=== PATIENT | female | born 2000 | race Two or more races ===

== ENCOUNTER 2024-07-06 13:34 | Outpatient (CLI) | payer OTHER | END 2024-07-06 13:39 | disposition home or self-care (01) | LOC: PRENATAL 13:34 | PROVIDERS: ATTEND Obstetrics & Gynecology Maternal & Fetal Medicine | DX: O36.80X0 Pregnancy with inconclusive fetal viability, not applicable or unspecified (principal); Z36.82 Encounter for antenatal screening for nuchal translucency; Z14.8 Genetic carrier of other disease; Z3A.11 11 weeks gestation of pregnancy ==

== ENCOUNTER 2024-07-14 05:05 | Emergency (ER) | payer OTHER ==
[~2024-07-14] VITALS: Ht 157.5 cm; Wt 68.0 kg
[2024-07-14] MEDS ORDERED: METOCLOPRAMIDE HCL 5 MG/ML VIAL IM STA (06:52)
[2024-07-14] MEDS ORDERED: FAMOtidine 10 MG/ML (4ML VIAL) IV PUSH STA (06:53)
[2024-07-14] MEDS ORDERED: METOCLOPRAMIDE HCL 5 MG/ML VIAL ONE (07:01)
[2024-07-14] MEDS ORDERED: FAMOTIDINE/PF 20 MG/2 ML VIAL ONE (07:01)
[2024-07-14 07:50] LABS: HEMATOCRIT 36.3 % (36.0-45.00); HEMOGLOBIN 12.2 g/dL (12.0-15.00); MEAN CELL VOLUME 83.5 fL (80.00-100.00); MEAN CORPUSCULAR HGB CONC 33.6 g/dl (32.0-36.0); PLATELET COUNT 289 K/uL (150-450); RED BLOOD COUNT 4.34 M/uL (4.00-6.00); RED CELL DISTRIBUTION WIDTH 14.2 % (11.5-14.5)
[2024-07-14 08:22] LABS: CREATININE SERUM 0.47 mg/dL (0.55-1.02); GFR 161.46; POTASSIUM 3.71 mEq/L (3.5-5.1)
[2024-07-14] MEDS ORDERED: ZOFRAN8 MG PO (09:14)
[2024-07-14] MEDS ORDERED: PEPCID AC20 MG PO (09:14)
[2024-07-14] MEDS ORDERED: 0.9 % SODIUM CHLORIDE 1,000 ML IV ONE (09:15)
== END 2024-07-14 10:42 | disposition home or self-care (01) ==
LOC: ER 05:06
DX: O21.0 Mild hyperemesis gravidarum (principal); Z3A.12 12 weeks gestation of pregnancy; Z88.0 Allergy status to penicillin; Z91.013 Allergy to seafood

== ENCOUNTER 2024-09-02 08:16 | Outpatient (CLI) | payer OTHER ==
[~2024-09-02 08:16] MED LIST: PEPCID AC20 MG PO; ZOFRAN8 MG PO
== END 2024-09-02 08:17 | disposition home or self-care (01) ==
LOC: PRENATAL 08:16
PROVIDERS: ATTEND Obstetrics & Gynecology Maternal & Fetal Medicine
DX: O44.00 Complete placenta previa NOS or without hemorrhage, unspecified trimester (principal); Z3A.20 20 weeks gestation of pregnancy

== ENCOUNTER 2024-10-30 12:06 | Outpatient (CLI) | payer OTHER | END 2024-10-30 12:08 | disposition home or self-care (01) | LOC: PRENATAL 12:06 | PROVIDERS: ATTEND Obstetrics & Gynecology Maternal & Fetal Medicine | DX: O26.849 Uterine size-date discrepancy, unspecified trimester (principal); O24.419 Gestational diabetes mellitus in pregnancy, unspecified control; O99.019 Anemia complicating pregnancy, unspecified trimester; Z3A.29 29 weeks gestation of pregnancy ==

== ENCOUNTER → 2024-11-25 10:50 | Outpatient (CLI) | payer OTHER | END | disposition home or self-care (01) | LOC: PRENATAL 10:50 | PROVIDERS: ATTEND Obstetrics & Gynecology Maternal & Fetal Medicine | DX: O26.849 Uterine size-date discrepancy, unspecified trimester (principal); O36.8199 Decreased fetal movements, unspecified trimester, other fetus; O24.419 Gestational diabetes mellitus in pregnancy, unspecified control; O99.019 Anemia complicating pregnancy, unspecified trimester; Z3A.32 32 weeks gestation of pregnancy ==

== ENCOUNTER 2024-12-14 08:33 | Outpatient (CLI) | payer OTHER | END 2024-12-14 08:34 | disposition home or self-care (01) | LOC: PRENATAL 08:33 | PROVIDERS: ATTEND Obstetrics & Gynecology Maternal & Fetal Medicine | DX: O26.849 Uterine size-date discrepancy, unspecified trimester (principal); O36.8130 Decreased fetal movements, third trimester, not applicable or unspecified; O24.419 Gestational diabetes mellitus in pregnancy, unspecified control; O99.019 Anemia complicating pregnancy, unspecified trimester; Z3A.35 35 weeks gestation of pregnancy ==

== ENCOUNTER 2025-01-06 14:45 | Inpatient (IN) | payer OTHER ==
[~2025-01-06] VITALS: Ht 157.5 cm; Wt 70.8 kg
[2025-01-08] MEDS ORDERED: UNISOM SLEEP AI25 MG PO (19:25)
[2025-01-08] MEDS ORDERED: PRENATAL TABLE1 EAC4 PO (19:25)
[2025-01-09] MEDS ORDERED: MACROBID 100 M100 MG PO (09:26)
[2025-01-12 13:01] LABS: BASO % 0.3 % (0.1-1.2); EOS # 0.05 (0.04-0.54); EOS % 0.4 % (0.7-7.0); LYMPH # 2.33 (1.18-3.74); LYMPH % 18.2 % (19.3-53.1); MEAN PLATELET VOLUME 11.10 fl (9.4-12.4); MONO # 0.87 (0.24-0.82); MONO % 6.8 % (4.7-12.5); NEUT # 9.36 (1.56-6.13); NEUT % 73.2 % (34.0-71.1); RED CELL DISTRIBUTION WIDTH 15.0 % (11.6-14.4)
[2025-01-12 13:06] LABS: URINE APPEARANCE Cloudy; URINE BILIRRUBIN Negative (NEGATIVE); URINE BLOOD Negative; URINE COLOR Yellow; URINE GLUCOSE Negative (NEGATIVE); URINE KETONE Negative (NEGATIVE); URINE LEUKOCYTE Small; URINE NITRATE Negative; URINE PROTEIN Trace (NEGATIVE); URINE UROBILINOGEN 1.0 E.U./dl
[2025-01-12 13:07] LABS: URINE BACTERIA 5433.4 uL (0.0-1933); URINE EPITHELIAL CELLS 121.6 uL (0.0-38.8); URINE RBC 5.2 uL (0.0-20.8); URINE WBC 78.4 uL (0.0-23.2)
[2025-01-12 13:23] LABS: INR < 0.93
[2025-01-12 13:40] LABS: URINE CAST 0.58 uL (0.0-1.40); URINE CRYSTALS MODERATE /HPF
[2025-01-12 14:01] LABS: ALT/SGPT 21.0 U/L (12-78); AST/SGOT 12.0 U/L (15-37); BILIRUBIN TOTAL 0.54 mg/dL (0.3-1.2); BUN CREA RATIO 10.0 (7.0-25.0); CREATININE SERUM 0.49 mg/dL (0.55-1.02); GFR 152.66; GLOBULINA 3.8 G/DL (2.4-3.5); GLUCOSE FASTING 62.0 mg/dL (65-100); OSMOLALITY SERUM 276.0 MOSM/KG (275-295)
[2025-01-19] VITALS (9 sets, daily range): BP systolic 101–124; BP diastolic 55–71
[2025-01-19] MEDS ORDERED: RINGERS SOLUTION,LACTATED 1,000 ML IV SCH (10:15)
[2025-01-19] MEDS ORDERED: OXYTOCIN 500 ML IV SCH (10:45)
[2025-01-19] MEDS ORDERED: CHLORHEXIDINE GLUCONATE 120 ML BOTTLE TOP ONE (16:22)
[2025-01-19] MEDS ORDERED: OXYTOCIN 20 UNITS/1000ML RL PIGGYBAG IV ONE (16:22)
[2025-01-19] MEDS ORDERED: ERYTHROMYCIN BASE OPHT 1GM EACH TUBE OP ONE (16:22)
[2025-01-19] MEDS ORDERED: LIDOCAINE HCL 1% 10ML VIAL ONE (16:23)
[2025-01-19] MEDS ORDERED: MORPHINE SULFATE 4 MG/ML CARTRIDGE IV ONE (17:00)
[2025-01-19] MEDS ORDERED: OXYTOCIN 1,000 ML IV SCH (20:15)
[2025-01-19] MEDS ORDERED: ACETAMINOPHEN 500 MG GEL..CAP PO PRN (20:15)
[2025-01-20 01:28] LABS: BASO % 0.3 % (0.1-1.2); EOS # 0.00 (0.04-0.54); EOS % 0.0 % (0.7-7.0); LYMPH # 1.38 (1.18-3.74); LYMPH % 5.9 % (19.3-53.1); MEAN PLATELET VOLUME 11.20 fl (9.4-12.4); MONO # 1.11 (0.24-0.82); MONO % 4.7 % (4.7-12.5); NEUT # 20.77 (1.56-6.13); NEUT % 88.5 % (34.0-71.1); RED CELL DISTRIBUTION WIDTH 14.6 % (11.6-14.4)
[2025-01-20 02:13] VITALS: BP 108/68
[2025-01-20 08:00] VITALS: BP 109/70
[2025-01-20] MEDS ORDERED: PNV,CALCIUM 72/IRON/FOLIC ACID 1 TAB TABLET PO SCH (09:00)
[2025-01-20 16:00] VITALS: BP 102/66
[2025-01-21 00:44] VITALS: BP 103/71
[2025-01-21 08:56] VITALS: BP 106/69
== END 2025-01-21 14:35 | disposition home or self-care (01) | DRG 807 ==
LOC: LDR 01-19 08:58 → OB/GYN 01-19 08:58
PROVIDERS: ADMIT Student in an Organized Health Care Education/Training Program; ATTEND Student in an Organized Health Care Education/Training Program
PROC: 10E0XZZ Delivery of Products of Conception, External Approach (ICD-10-PCS; principal; 2025-01-19)
PROC: 0W8NXZZ Division of Female Perineum, External Approach (ICD-10-PCS; 2025-01-19)
PROC: 4A1HXCZ Monitoring of Products of Conception, Cardiac Rate, External Approach (ICD-10-PCS; 2025-01-19)
DX: O80 Encounter for full-term uncomplicated delivery (principal); Z37.0 Single live birth; Z3A.39 39 weeks gestation of pregnancy

== ENCOUNTER 2025-01-08 18:21 | Outpatient (CLI) | payer OTHER ==
[~2025-01-08] VITALS: Ht 157.5 cm; Wt 70.8 kg
[2025-01-08 17:20] VITALS: BP 111/71
[2025-01-08] MEDS ORDERED: FLUCONAZOLE 150 MG TABLET PO ONE (18:45)
[2025-01-08] MEDS ORDERED: RINGERS SOLUTION,LACTATED 1,000 ML IV SCH (18:45)
[2025-01-08] MEDS ORDERED: PRENATAL TABLE1 EAC4 PO (19:25)
[2025-01-08] MEDS ORDERED: UNISOM SLEEP AI25 MG PO (19:25)
[2025-01-08 19:31] LABS: BASO % 0.3 % (0.1-1.2); EOS # 0.04 (0.04-0.54); EOS % 0.3 % (0.7-7.0); LYMPH # 2.24 (1.18-3.74); LYMPH % 19.1 % (19.3-53.1); MEAN PLATELET VOLUME 11.50 fl (9.4-12.4); MONO # 0.80 (0.24-0.82); MONO % 6.8 % (4.7-12.5); NEUT # 8.56 (1.56-6.13); NEUT % 72.9 % (34.0-71.1); RED CELL DISTRIBUTION WIDTH 15.0 % (11.6-14.4)
[2025-01-08 19:35] LABS: URINE APPEARANCE Cloudy; URINE BILIRRUBIN Negative (NEGATIVE); URINE BLOOD Negative; URINE COLOR Yellow; URINE GLUCOSE Negative (NEGATIVE); URINE KETONE Negative (NEGATIVE); URINE LEUKOCYTE Small; URINE NITRATE Negative; URINE PROTEIN Trace (NEGATIVE); URINE UROBILINOGEN 0.2 E.U./dl
[2025-01-08 19:38] LABS: URINE BACTERIA 2194.6 uL (0.0-1933); URINE EPITHELIAL CELLS 38.9 uL (0.0-38.8); URINE RBC 4.3 uL (0.0-20.8); URINE WBC 24.7 uL (0.0-23.2)
[2025-01-08 19:44] LABS: URINE CAST 0.29 uL (0.0-1.40)
[2025-01-08 19:52] LABS: INR < 0.93
[2025-01-08 19:58] LABS: ALT/SGPT 20.0 U/L (12-78); AST/SGOT 17.0 U/L (15-37); BILIRUBIN TOTAL 0.6 mg/dL (0.3-1.2); BUN CREA RATIO 10.0 (7.0-25.0); CREATININE SERUM 0.58 mg/dL (0.55-1.02); GFR 125.66; GLOBULINA 3.7 G/DL (2.4-3.5); GLUCOSE FASTING 94.0 mg/dL (65-100); OSMOLALITY SERUM 277.0 MOSM/KG (275-295)
[2025-01-08 23:22] VITALS: BP 99/62
[2025-01-09 03:00] VITALS: BP 86/42
[2025-01-09 07:30] VITALS: BP 96/55
[2025-01-09] MEDS ORDERED: ONDANSETRON HCL 2 MG/ML VIAL IV NR (08:45)
[2025-01-09] MEDS ORDERED: MACROBID 100 M100 MG PO (09:26)
== END 2025-01-09 10:00 | disposition home or self-care (01) ==
LOC: OBS/DEL 18:21
PROVIDERS: Obstetrics & Gynecology; ATTEND Student in an Organized Health Care Education/Training Program
DX: O26.853 Spotting complicating pregnancy, third trimester (principal); Z3A.38 38 weeks gestation of pregnancy